=== PATIENT | male | born 1955 | race Caucasian/White ===

== ENCOUNTER → 2024-02-28 06:36 | Outpatient (REF) | payer MEDICARE, OTHER, SELFPAY ==
[2024-02-28 07:26] LABS: Albumin 4.8 g/dl (3.5-5.0); Blood Urea Nitrogen 37 mg/dl (9-20); Calcium 9.4 mg/dl (8.4-10.2); Carbon Dioxide 21 mmol/L (22-30); Chloride 105 mmol/L (98-107); Glucose 121 mg/dl (70-99); Phosphorus 3.5 mg/dl (2.5-4.5); Potassium 4.7 mmol/L (3.5-5.1); Sodium 134 mmol/L (135-145); eGFR 50.71
[2024-02-28 08:36] LABS: Glycohemoglobin (HgbA1c) 6.8 % (4.0-5.6)
== END ==
LOC: REG 06:36
PROVIDERS: ATTENDING PHYSICIAN Internal Medicine
DX: E11.29 Type 2 diabetes mellitus with other diabetic kidney complication (principal); R80.9 Proteinuria, unspecified; N28.9 Disorder of kidney and ureter, unspecified
CPT/HCPCS: 36415; 80069; 83036

== ENCOUNTER → 2024-06-06 06:19 | Outpatient (REF) | payer MEDICARE, OTHER, SELFPAY ==
[2024-06-06 08:31] LABS: Albumin 4.9 g/dl (3.5-5.0); Blood Urea Nitrogen 46 mg/dl (9-20); Carbon Dioxide 19 mmol/L (22-30); Chloride 105 mmol/L (98-107); Glucose 133 mg/dl (70-99); Phosphorus 3.3 mg/dl (2.5-4.5); Sodium 136 mmol/L (135-145); eGFR 46.93
[2024-06-06 11:04] LABS: Glycohemoglobin (HgbA1c) 6.8 % (4.0-5.6)
== END ==
LOC: REG 06:19
PROVIDERS: ATTENDING PHYSICIAN Internal Medicine
DX: E11.29 Type 2 diabetes mellitus with other diabetic kidney complication (principal); R80.9 Proteinuria, unspecified; Z85.528 Personal history of other malignant neoplasm of kidney; K86.89 Other specified diseases of pancreas; N28.9 Disorder of kidney and ureter, unspecified; Z90.5 Acquired absence of kidney
CPT/HCPCS: 36415; 80069; 83036

== ENCOUNTER → 2024-09-07 06:20 | Outpatient (REF) | payer MEDICARE, OTHER, SELFPAY ==
[2024-09-07 07:35] LABS: Hematocrit 42.1 % (39.0-52.0); Hemoglobin 14.3 g/dL (13.0-18.0)
[2024-09-07 08:10] LABS: Protein/creatinine Ratio 0.2; Urine Protein 11 mg/dl
[2024-09-07 08:16] LABS: Microalbumin, Random Urine 1.3 mg/dl (0.6-1.7); Microalbumin/creatinine Ratio 21.2 mg/g
[2024-09-07 09:12] LABS: Calcium 9.5 mg/dl (8.4-10.2)
[2024-09-07 09:15] LABS: Albumin 4.7 g/dl (3.5-5.0); Blood Urea Nitrogen 39 mg/dl (9-20); Carbon Dioxide 19 mmol/L (22-30); Chloride 102 mmol/L (98-107); Glucose 134 mg/dl (70-99); Phosphorus 3.2 mg/dl (2.5-4.5); Potassium 4.9 mmol/L (3.5-5.1); Sodium 137 mmol/L (135-145); Total Cholesterol 152 mg/dl (50-199); Triglyceride 100 mg/dl (10-149); Very Low Density Lipoprotein 20 mg/dl (0-30); eGFR 50.71
[2024-09-07 09:41] LABS: Calcium 9.4 mg/dl (8.4-10.2); HDL Cholesterol 42 mg/dl; LDL Cholesterol, Calculated 90 mg/dl
[2024-09-07 09:48] LABS: PSA, Total - Screen 2.48 ng/ml (0.0-4.0)
[2024-09-07 09:52] LABS: Glycohemoglobin (HgbA1c) 6.3 % (4.0-5.6)
[2024-09-08 09:21] LABS: Intact PTH 122.5 pg/ml (13.6-85.8)
== END ==
LOC: REG 06:20
PROVIDERS: ATTENDING PHYSICIAN Specialist; FAMILY PHYSICIAN Internal Medicine
DX: E11.29 Type 2 diabetes mellitus with other diabetic kidney complication (principal); R80.9 Proteinuria, unspecified; N18.31 Chronic kidney disease, stage 3a; Z85.528 Personal history of other malignant neoplasm of kidney; Z90.5 Acquired absence of kidney; K86.89 Other specified diseases of pancreas; K86.2 Cyst of pancreas; Z12.5 Encounter for screening for malignant neoplasm of prostate; Q60.0 Renal agenesis, unilateral
CPT/HCPCS: 36415; 80061; 80069; 82043; 82570; 83036; 83970; 84156; 85014; 85018; G0103

== ENCOUNTER → 2024-10-08 06:34 | Outpatient (REF) | payer MEDICARE, OTHER, SELFPAY | LOC: MRI 3T 06:34 | PROVIDERS: ATTENDING PHYSICIAN Nurse Practitioner Adult Health; FAMILY PHYSICIAN Internal Medicine | DX: K86.1 Other chronic pancreatitis (principal); K86.2 Cyst of pancreas | CPT/HCPCS: 74181 ==

== ENCOUNTER → 2024-12-05 06:28 | Outpatient (REF) | payer MEDICARE, OTHER, SELFPAY ==
[2024-12-05 07:39] LABS: Albumin 4.9 g/dl (3.5-5.0); Blood Urea Nitrogen 56 mg/dl (9-20); Calcium 9.4 mg/dl (8.4-10.2); Carbon Dioxide 21 mmol/L (22-30); Chloride 102 mmol/L (98-107); Glucose 193 mg/dl (70-99); Potassium 5.2 mmol/L (3.5-5.1); Sodium 137 mmol/L (135-145)
[2024-12-05 07:49] LABS: Phosphorus 3.5 mg/dl (2.5-4.5)
[2024-12-05 09:03] LABS: Glycohemoglobin (HgbA1c) 7.7 % (4.0-5.6)
== END ==
LOC: REG 06:28
PROVIDERS: ATTENDING PHYSICIAN Internal Medicine
DX: E11.29 Type 2 diabetes mellitus with other diabetic kidney complication (principal); N18.31 Chronic kidney disease, stage 3a
CPT/HCPCS: 36415; 80069; 83036

== ENCOUNTER → 2025-02-27 06:28 | Outpatient (REF) | payer MEDICARE, OTHER, SELFPAY ==
[2025-02-27 10:13] LABS: Glycohemoglobin (HgbA1c) 6.4 % (4.0-5.6)
[2025-02-27 11:09] LABS: Albumin 4.6 g/dl (3.5-5.0); Blood Urea Nitrogen 50 mg/dl (9-20); Calcium 9.8 mg/dl (8.4-10.2); Carbon Dioxide 18 mmol/L (22-30); Chloride 109 mmol/L (98-107); Glucose 159 mg/dl (70-99); Potassium 5.2 mmol/L (3.5-5.1); Sodium 138 mmol/L (135-145); eGFR 43.37
== END ==
LOC: REG 06:28
PROVIDERS: ATTENDING PHYSICIAN Internal Medicine
DX: E11.29 Type 2 diabetes mellitus with other diabetic kidney complication (principal); R80.9 Proteinuria, unspecified; N18.31 Chronic kidney disease, stage 3a; Z85.528 Personal history of other malignant neoplasm of kidney; Z90.5 Acquired absence of kidney; K86.89 Other specified diseases of pancreas; Z00.00 Encounter for general adult medical examination without abnormal findings
CPT/HCPCS: 36415; 80069; 83036

== ENCOUNTER → 2025-05-28 06:26 | Outpatient (REF) | payer MEDICARE, OTHER, SELFPAY ==
[2025-05-28 06:48] LABS: Hematocrit 45.9 % (39.0-52.0); Hemoglobin 15.2 g/dL (13.0-18.0); Mean Corp Hgb Conc. 33.1 g/dL (33.0-37.0); Mean Corpuscular Volume 90.7 fL (80.0-94.0); Nucleated Red Blood Cells % 0 % (-); Platelet Count 157 10^3/uL (130-400); Red Cell Dist. Width 13.1 % (11.5-14.5)
[2025-05-28 07:12] LABS: Microalb - Urine Creatinine 30.700 mg/dl
[2025-05-28 07:13] LABS: Albumin 4.9 g/dl (3.5-5.0); Blood Urea Nitrogen 37 mg/dl (9-20); Calcium 9.2 mg/dl (8.4-10.2); Calcium 9.3 mg/dl (8.4-10.2); Carbon Dioxide 23 mmol/L (22-30); Chloride 107 mmol/L (98-107); Glucose 126 mg/dl (70-99); Potassium 4.4 mmol/L (3.5-5.1); Sodium 139 mmol/L (135-145); eGFR 50.40
[2025-05-28 07:17] LABS: Microalbumin, Random Urine 2.1 mg/dl (0.6-1.7)
[2025-05-28 09:03] LABS: Glycohemoglobin (HgbA1c) 6.8 % (4.0-5.6)
== END ==
LOC: REG 06:26
PROVIDERS: ATTENDING PHYSICIAN Specialist; FAMILY PHYSICIAN Internal Medicine
DX: N18.31 Chronic kidney disease, stage 3a (principal); E87.20 Acidosis, unspecified; E87.5 Hyperkalemia; E11.29 Type 2 diabetes mellitus with other diabetic kidney complication; Z85.528 Personal history of other malignant neoplasm of kidney; Z90.5 Acquired absence of kidney; M51.9 Unspecified thoracic, thoracolumbar and lumbosacral intervertebral disc disorder
CPT/HCPCS: 36415; 80069; 82043; 82570; 83036; 83970; 85025

== ENCOUNTER → 2025-09-09 06:23 | Outpatient (REF) | payer MEDICARE, OTHER, SELFPAY ==
[2025-09-09 08:40] LABS: Glycohemoglobin (HgbA1c) 6.1 % (4.0-5.6)
[2025-09-09 08:59] LABS: Albumin 4.9 g/dl (3.5-5.0); Blood Urea Nitrogen 46 mg/dl (9-20); Calcium 9.5 mg/dl (8.4-10.2); Carbon Dioxide 20 mmol/L (22-30); Chloride 109 mmol/L (98-107); Glucose 91 mg/dl (70-99); Potassium 5.3 mmol/L (3.5-5.1); Sodium 139 mmol/L (135-145); eGFR 46.64
== END ==
LOC: REG 06:23
PROVIDERS: ATTENDING PHYSICIAN Internal Medicine; REFERRING PHYSICIAN Specialist
DX: E11.29 Type 2 diabetes mellitus with other diabetic kidney complication (principal); Z85.528 Personal history of other malignant neoplasm of kidney; Z90.5 Acquired absence of kidney; N18.31 Chronic kidney disease, stage 3a; K86.89 Other specified diseases of pancreas
CPT/HCPCS: 36415; 80069; 83036

== ENCOUNTER → 2025-10-09 06:35 | Outpatient (REF) | payer MEDICARE, OTHER, SELFPAY | LOC: MRI 3T 06:35 | PROVIDERS: ATTENDING PHYSICIAN Specialist; FAMILY PHYSICIAN Internal Medicine | DX: K86.2 Cyst of pancreas (principal); K86.3 Pseudocyst of pancreas | CPT/HCPCS: 74181 ==